=== PATIENT | male | born 1950 | race Caucasian/White ===

== ENCOUNTER 2016-07-10 10:20 | Emergency (ER) | payer OTHER, MEDICAID ==
[2016-07-10 10:21] VITALS: BMI 29.2
[2016-07-10 10:35] VITALS: TEMP 98.4
[2016-07-10 11:23] VITALS: RESP 18; O2SAT 99
--- NOTE | 2016-07-10 11:23 | ED PDOC ---
Arrival/HPI - General Historian: Patient - History of Present Illness Time/Duration: 24 hours Symptom Onset: Sudden Symptom Course: Unchanged <Marlon Pacheco - Last Filed: 07/11/16 14:31> <FlorParvez L - Last Filed: 07/12/16 10:37> - General Chief Complaint: GI Problem Time Seen by Provider: 07/10/16 10:29 - History of Present Illness Narrative History of Present Illness (Text): 66 M with pmh of HLD, HTN, Hypothyroidism, and BPH presents to the ED with coughing up blood. Pt states that this started last night when he was laying down on his couch. He had multiple episodes of coughing up blood. This morning when he woke up it still persisted and made him come to the ED. He also states that he had dried figs last night and was wondering if that could have caused this. He denies any recent fever, chills, night sweats, weight loss. Denies any recent travel outside the country or in contact with anyone with TB. 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 He denies any john, dizziness, cp, sob, abd pain, n/v/d, urinary or bm changes. PMD: Daniel Garcia (Marlon Pacheco) Past Medical History - Provider Review Nursing Documentation Reviewed: Yes - Tetanus Immunization Tetanus Immunization: Unknown - Cardiac Hx Pacemaker: No - Pulmonary Hx Respiratory Disorders: Yes - Neurological Hx Neurological Disorder: No Hx Paralysis: No - HEENT Hx HEENT Disorder: No - Renal Hx Renal Disorder: No - Endocrine/Metabolic Other/Comment: THYROID DISEASE - Hematological/Oncological Hx Anemia: Yes - Integumentary Hx Dermatological Disorder: No - Musculoskeletal/Rheumatological Hx Musculoskeletal Disorders: No Hx Falls: No - Gastrointestinal Other/Comment: ABD PAIN - Genitourinary/Gynecological Hx Genitourinary Disorders: No - Psychiatric Hx Anxiety: Yes Hx Depression: No Hx Emotional Abuse: No Hx Physical Abuse: No Hx Substance Use: No - Surgical History Hx Appendectomy: Yes - Anesthesia Hx Anesthesia Reactions: No Hx Malignant Hyperthermia: No - Suicidal Assessment Feels Threatened In Home Enviroment: No <Marlon Pacheco - Last Filed: 07/11/16 14:31> Family/Social History - Physician Review Nursing Documentation Reviewed: Yes Family/Social History: No Known Family HX Smoking Status: Former Smoker Hx Alcohol Use: Yes Hx Substance Use: No Hx Substance Use Treatment: No <Marlon Pacheco - Last Filed: 07/11/16 14:31> Allergies/Home Meds <Marlon Pacheco - Last Filed: 07/11/16 14:31> <FlorParvez L - Last Filed: 07/12/16 10:37> Allergies/Adverse Reactions: Allergies No Known Allergies Allergy (Verified 07/10/16 10:25) Home Medications: Home Meds Medication Instructions Recorded Confirmed Meclizine HCl [Antivert] 25 mg PO PRN PRN 03/01/12 07/10/16 Finasteride 5 mg PO DAILY 09/28/12 07/10/16 Aspirin 1 tab PO DAILY 07/10/16 07/10/16 Atorvastatin [Lipitor] 10 mg PO DAILY 07/10/16 07/10/16 Cholecalciferol (Vitamin D3) 1 cap PO SUN 07/10/16 07/10/16 [Vitamin D3] Iron/Folate No.6/Mv,Mins No.40 1 tab PO DAILY 07/10/16 07/10/16 [Corvite Fe Tablet] Levothyroxine [Synthroid] 50 mcg PO DAILY 07/10/16 07/10/16 Loratadine 10 mg PO DAILY 07/10/16 07/10/16 Lorazepam [Ativan] 1 tab PO DAILY 07/10/16 07/10/16 Ranitidine HCl [Zantac] 300 mg PO DAILY 07/10/16 07/10/16 Review of Systems - Review of Systems Constitutional: absent: Fatigue, Weight Change, Fevers, Night Sweats Eyes: absent: Vision Changes ENT: absent: Hearing Changes Respiratory: Cough (blood). absent: SOB Cardiovascular: absent: Chest Pain, Palpitations Gastrointestinal: absent: Abdominal Pain, Diarrhea, Nausea, Vomiting Genitourinary Male: absent: Dysuria, Frequency Musculoskeletal: absent: Arthralgias Skin: absent: Rash Neurological: absent: Headache, Dizziness Endocrine: absent: Diaphoresis Psychiatric: absent: Anxiety <Marlon Pacheco - Last Filed: 07/11/16 14:31> Physical Exam Temperature: Afebrile Blood Pressure: Normal Pulse: Regular Respiratory Rate: Normal Appearance: Positive for: Well-Appearing, Non-Toxic, Comfortable Pain Distress: None Mental Status: Positive for: Alert and Oriented X 3 - Systems Exam Head: Present: Atraumatic, Normocephalic Pupils: Present: PERRL Extroacular Muscles: Present: EOMI Mouth: Present: Moist Mucous Membranes Neck: Present: Normal Range of Motion Respiratory/Chest: Present: Clear to Auscultation, Good Air Exchange. No: Respiratory Distress, Accessory Muscle Use, Wheezes, Rales Cardiovascular: Present: Regular Rate and Rhythm, Normal S1, S2. No: Murmurs Abdomen: Present: Normal Bowel Sounds. No: Tenderness, Distention, Peritoneal Signs Upper Extremity: Present: Normal Inspection. No: Cyanosis, Edema Lower Extremity: Present: Normal Inspection. No: Edema Neurological: Present: GCS=15, CN II-XII Intact, Speech Normal Skin: Present: Warm, Dry, Normal Color. No: Rashes Psychiatric: Present: Alert, Oriented x 3, Normal Insight, Normal Concentration <Marlon Pacheco - Last Filed: 07/11/16 14:31> Medical Decision Making <Marlon Pacheco - Last Filed: 07/11/16 14:31> <Parvez Ray - Last Filed: 07/12/16 10:37> ED Course and Treatment: Impression: 66 M with pmh of HLD, HTN, Hypothyroidism, and BPH presents to the ED with coughing up blood. Differential Diagnosis included but are not limited to: TB vs UGI bleed Vs Cancer Plan: - CBC, CMP, Mg, P, TSH - CXR 2 views - Isolation - Reassess and disposition Prior Visits: Notes and results from previous visits were reviewed. On 09/28/12 patient came in complaining of not feeling well / anxiety . Progress Notes: 07/10/16 12:32 CXR shows b/l apical scarring unchanged with prior and consistent with past history of TB no focal consolidation. 07/10/16 12:48 Infectious dx - Dr Garcia was contacted and recommended ruling out TB. ( Marlon Pacheco) 66 yo male with h/o HLD, HTN, Hypothyroidism, and BPH presents to ED with coughing up blood. He says that he had a dry throught that makes him cough up something because it gets irritated. He noted some blood so he came to ED for evaluation. Agree with history and physical, disposition and plan as stated by resident. Lungs: CTA, No w/r/r. ENT: no edema, erythema, or pus; uvula midline; normal voice Abd: soft and not tender; not distended; normal bs DDx: TB vs UGI Bleed vs Cancer vs Bronchitis/Allergies with Dry Throat CXR shows b/l apical scarring unchanged with prior and consistent with past history of TB no focal consolidation Patient was offered admission for further evaluation of TB and or cancer. He did not want to stay in the hospital. He states that he already received TB medications in his home control and was told those CXR findings would be there. He was given time to think about it but still did not want to stay. He reiterated to me that he understands the importance of follow up with his PMD for further evaluation of TB, Cancer or any other cause. He says he will make sure he follows up. I also notified Araceli Starr, Infectious Disease, to report to her this patient's history and current presentation. She states she has notified the current avenues for those who will follow up with him. Patient is in no acute distress and is stable to be discharged home with followup. (Parvez Ray) - Lab Interpretations Microbiology Results: Microbiology Results 07/10/16 13:15 Other: Please Indicate Mycobacterial Culture - Preliminary Lab Results: 07/10/16 11:29 07/10/16 11:29 Lab Results 07/10/16 11:29: TSH 3rd Generation 3.01 07/10/16 11:29: Sodium 139, Potassium 4.3, Chloride 101, Carbon Dioxide 27, Anion Gap 15, BUN 14, Creatinine 0.9, Est GFR ( Amer) > 60, Est GFR (Non- Af Amer) > 60, Random Glucose 93, Calcium 9.3, Phosphorus 3.4, Magnesium 2.0, Total Bilirubin 0.8, AST 47, ALT 62 H, Alkaline Phosphatase 77, Total Protein 9.0 H, Albumin 4.6, Globulin 4.4, Albumin/Globulin Ratio 1.0 L 07/10/16 11:29: WBC 5.0, RBC 4.49, Hgb 13.8 L, Hct 39.9 L, MCV 88.9, MCH 30.7, MCHC 34.6, RDW 12.5, Plt Count 212, MPV 9.9, Gran % 54.1, Lymph % (Auto) 34.7, Meigs % (Auto) 6.6 H, Eos % (Auto) 3.6, Baso % (Auto) 1.0, Gran # 2.72, Lymph # 1.7, Meigs # 0.3, Eos # 0.2, Baso # 0.05 - RAD Interpretation Radiology Orders: 07/10/16 11:21 CHEST TWO VIEWS (PA/LAT) [RAD] Stat Disposition/Present on Arrival - Present on Arrival Any Indicators Present on Arrival: No History of DVT/PE: No History of Uncontrolled Diabetes: No Urinary Catheter: No History of Decub. Ulcer: No History Surgical Site Infection Following: None - Disposition Have Diagnosis and Disposition been Completed?: Yes Disposition Time: 13:30 <Marlon Pacheco - Last Filed: 07/11/16 14:31> - Disposition Patient Plan: Discharge <Parvez Ray - Last Filed: 07/12/16 10:37> - Disposition Diagnosis: Hemoptysis Disposition: HOME/ ROUTINE Condition: GOOD Discharge Instructions (ExitCare): Hemoptysis (ED) Additional Instructions: Mr Raymond, thank you for letting us take care of you today. Your provider was Dr. Ray. You were treated for Hemoptysis The emergency medical care you received today was directed at your acute symptoms. If you were prescribed any medication, please fill it and take as directed. It may take several days for your symptoms to resolve. Return to the Emergency Department if your symptoms worsen, do not improve, or if you have any other problems. Please contact your doctor or call one of the physicians/clinics you have been referred to that are listed on the Patient Visit Information form that is included in your discharge packet. Bring any paperwork you were given at discharge with you along with any medications you are taking to your follow up visit. Our treatment cannot replace ongoing medical care by a primary care provider (PCP) outside of the emergency department. It's important that you follow up with your primary care doctor about your blood in your sputum. We need to consider Tuberculosis and also Lung Cancer so its important that you follow up as soon as possible. Thank you for allowing the [facility] team to be part of your care today. If you had an X-Ray or CT scan: A Radiologist will review the ED reading if any change in treatment is needed we will contact you. If you had a blood, urine, or wound culture: It will take several days for the results, if any change in treatment is needed we will contact you. If you had an STI test: It will take 48 hours for the results. Please call after 1 week if you have not heard back. Referrals: Daniel Garcia MD [Primary Care Provider] - Follow up with primary Forms: doo (Bengali), WORK NOTE
[2016-07-10 11:36] LABS: ADD MANUAL DIFF? NO
[2016-07-10 11:45] LABS: BASO # 0.05 K/mm3 (0.0-2.0); EOS # 0.2 (0.0-0.7); EOS % 3.6 % (1.5-5.0); GRAN # 2.72 (1.4-6.5); GRAN % 54.1 % (50.0-68.0); HEMATOCRIT 39.9 % (42.0-52.0); LYMPH # 1.7 (1.2-3.4); LYMPH % 34.7 % (22.0-35.0); MEAN CELL VOLUME 88.9 fL (80.0-105.0); MEAN CORPUSCULAR HEMOGLOBIN 30.7 pg (25.0-35.0); MEAN CORPUSCULAR HGB CONC 34.6 g/dl (31.0-37.0); MEAN PLATELET VOLUME 9.9 fl (7.0-11.0); MONO # 0.3 (0.1-0.6); MONO % 6.6 % (1.0-6.0); PLATELET COUNT 212 10^3/uL (120.0-450.0); RED CELL DISTRIBUTION WIDTH 12.5 % (11.5-14.5)
[2016-07-10 11:51] LABS: ALKALINE PHOSPHATASE 77 U/L (38-133); ALT/SGPT 62 U/L (7-56); AST/SGOT 47 U/L (15-59); BILIRUBIN,TOTAL 0.8 mg/dL (0.2-1.3); BLOOD UREA NITROGEN 14 mg/dL (7-21); CALCIUM 9.3 mg/dL (8.4-10.5); CARBON DIOXIDE 27 mmol/L (21-33); CHLORIDE 101 mmol/L (98-107); GFR AFRICAN-AMERICAN > 60; GLUCOSE,RANDOM 93 mg/dL (70-110); PHOSPHOROUS 3.4 mg/dL (2.5-4.5); POTASSIUM 4.3 mmol/L (3.6-5.0); SODIUM 139 mmol/L (132-148)
--- NOTE | 2016-07-10 12:28 | RAD ---
HISTORY: hemoptysis COMPARISON: 04/18/2015 TECHNIQUE: Chest PA and lateral FINDINGS: LUNGS: There is apical scarring bilaterally unchanged and previous study and consistent with a past history of TB. There is no focal consolidation PLEURA: No significant pleural effusion identified. No pneumothorax apparent. CARDIOVASCULAR: Normal. OSSEOUS STRUCTURES: No significant abnormalities. VISUALIZED UPPER ABDOMEN: Normal. OTHER FINDINGS: None. IMPRESSION: There is apical scarring bilaterally unchanged and previous study and consistent with a past history of TB. There is no focal consolidation
[2016-07-10 13:21] VITALS: BP 126/67; PULSE 69
== END 2016-07-10 13:26 | disposition home or self-care (01) ==
LOC: ED 10:20
DX: R04.2 Hemoptysis (principal); I10 Essential (primary) hypertension; Z87.891 Personal history of nicotine dependence